=== PATIENT | female | born 1970 | race Caucasian/White ===

== ENCOUNTER → 2017-04-13 | Outpatient (CLI) | payer SELFPAY | LOC: M CLY 14:01 | DX: I10 Essential (primary) hypertension (principal) ==

== ENCOUNTER → 2017-04-16 | Outpatient (CLI) | payer SELFPAY | LOC: M CLY 11:26 | DX: Z00.00 Encounter for general adult medical examination without abnormal findings (principal) ==

== ENCOUNTER → 2019-09-21 | Outpatient (CLI) | payer SELFPAY | LOC: M LABSMTC 15:25 | PROVIDERS: ATTEND Anesthesiology | DX: Z11.59 Encounter for screening for other viral diseases (principal); R07.1 Chest pain on breathing ==

== ENCOUNTER → 2020-03-04 | Outpatient (CLI) | payer SELFPAY | LOC: M SOG 13:05 | PROVIDERS: ATTEND Orthopaedic Surgery Sports Medicine | DX: Z53.9 Procedure and treatment not carried out, unspecified reason (principal) ==